=== PATIENT | female | born 1955 | race African-American/Black ===

== ENCOUNTER 2016-12-10 21:50 | Emergency (ER) | END 2016-12-11 01:43 | disposition home or self-care (01) | DX: F41.9 Anxiety disorder, unspecified (principal); F17.210 Nicotine dependence, cigarettes, uncomplicated; I10 Essential (primary) hypertension; E11.9 Type 2 diabetes mellitus without complications; G89.4 Chronic pain syndrome; Z79.84 Long term (current) use of oral hypoglycemic drugs ==

== ENCOUNTER 2016-12-18 10:27 | Emergency (ER) | payer OTHER ==
[~2016-12-18] VITALS: Ht 170.2 cm; Wt 112.5 kg
[~2016-12-18 10:27] MED LIST: ALBU8.5H3 INH; ALPR1TAB2 PO; ATOR20TA38 PO; BEN50 PO; BENA20TA48 PO; BUDE6HFA IH; BUME1TAB18 PO; CARI350T PO; FLUT16SP24 NASAL; HYDR-906 PO; METO100T13 PO; OMEP20CA9 PO; POTA20TA8 PO; RTATR NEB; SITA1TAB7 PO; TOLT4CAP PO; TRAM-40 PO
[2016-12-18 10:33] VITALS: Ht 170.2 cm; Wt 112.5 kg
--- NOTE | 2016-12-18 11:47 | ERD ---
ER Documentation Chief Complaint Date/Time DATE: 12/18/16 TIME: 11:43 Chief Complaint cough,sob history of copd HPI This patient is a 7-year-old female with history of type 2 diabetes, hypertension, high cholesterol, and COPD presenting to the emergency department for exacerbation of chronic COPD. The patient states that intermittently for the past week she has had increased coughing and shortness of breath. She reports productive cough of green phlegm. She is taking Symbicort at home which usually relieves her symptoms but lately has not been working. Additionally she reports feeling lightheaded every time that she coughs. She is not taking any prednisone or other steroids currently. She states the breathing treatments do not work well to relieve her symptoms and in some instances make her condition worse. She denies any nausea, vomiting, diarrhea, fever, chills, or other symptoms at this time. ROS All systems reviewed and are negative except as per history of present illness. Medications Home Meds Active Scripts Prednisone* (Prednisone*) 20 Mg Tab, 40 MG PO DAILY for 5 Days, #10 TAB Prov:ISIS MOREJON PA-C 12/18/16 Azithromycin* (Zithromax*) 250 Mg Tablet, 250 MG PO .ZPACK DIRECTED, #6 TAB TAKE 500 MG (2 TABS) THE FIRST DAY THEN 250 MG (1 TAB) DAYS 2-5 Prov:ISIS MOREJON PA-C 12/18/16 Hydrocodone/Acetaminophen ([place] 5-325 Tablet) 1 Each Tablet, 1 TAB PO Q6H Y for PAIN, #10 TAB Prov:RICCARDO CANTU NP 12/11/16 Alprazolam* (Xanax*) 1 Mg Tab, 1 MG PO Q8H Y for ANXIETY, #10 TAB Prov:RICCARDO CANTU NP 12/11/16 Reported Medications Benazepril Hcl* (Benazepril Hcl*) 20 Mg Tablet, 20 MG PO DAILY, TAB 02/27/15 Fluticasone Propionate* (Flonase* Nasal) 50 Mcg/[place] - 16 Gm [place].susp, 1 SPRAY NASAL DAILY, SPRAY TO EACH NOSTRIL 02/27/15 Bumetanide* (Bumetanide*) 1 Mg Tablet, 1 MG PO DAILY X 5 DAYS, TAB 02/27/15 Tramadol Hcl* (Ultram*) 50 Mg Tablet, 50 MG PO Q4 Y for PAIN, TAB 02/27/15 Tolterodine Tartrate* (Detrol LA*) 4 Mg Cap.sr.24h, 4 MG PO DAILY, CAP 02/27/15 Carisoprodol* (Soma*) 350 Mg Tablet, 350 MG PO TID, TAB 02/27/15 Omeprazole* (Prilosec*) 20 Mg Capsule.dr, 20 MG PO DAILY, CAP 02/27/15 Atorvastatin Calcium* (Atorvastatin Calcium*) 20 Mg Tablet, 20 MG PO HS, TAB 02/27/15 Metoprolol Succinate* (Toprol XL*) 100 Mg Tab.sr.24h, 100 MG PO BID, TAB 02/27/15 Diphenhydramine Hcl* (Benadryl*) 50 Mg Cap, 50 MG PO QHS for ITCHING, CAP 02/27/15 Albuterol Sulfate* (Proair HFA*) 8.5 Gm Hfa.aer.ad, 2 PUFF INH Q4H Y for WHEEZING AND SOB, INH 02/27/15 Budesonide-Formoterol Fumarate* (Symbicort*) 160-4.5 Hfa.aer.ad, 1 PUFF IH BID, INH 02/27/15 Sitagliptin Phos-Metformin Hcl (Janumet) 50-1,000 Mg Tablet, 1 TAB PO BID, TAB 02/27/15 Ipratropium [place]* (Atrovent*) 0.5 Mg/2.5 Ml Neb, 0.5 MG NEB QID Y for WHEEZING AND SOB, EA 02/27/15 Potassium Chloride* (Klor-Con*) 10 Meq Tabsr, 10 MEQ PO DAILY, TAB.SA 02/27/15 Allergies Allergies: Coded Allergies: Penicillins (Verified Allergy, Unknown, 12/18/16) PMhx/Soc History of Surgery: Yes (LEFT LUMPECTOMY 1998) Anesthesia Reaction: No Hx Respiratory Disorders: Yes (Sinusitis, Bronchitis, COPD) Hx Cardiac Disorders: Yes (HTN) Hx Psychiatric Problems: No Hx Miscellaneous Medical Probl: Yes ( Incontinence,HIGH Cholesterol, Pinched Nerves, Diabetes type 2) Hx Alcohol Use: No Hx Substance Use: No Hx Tobacco Use: Yes Smoking Status: Current every day smoker FmHx Noncontributory for chief complaint Physical Exam Vitals Vital Signs Date Time Temp Pulse Resp B/P Pulse Ox O2 Delivery O2 Flow Rate FiO2 12/18/16 10:33 98.0 94 24 142/76 96 Physical Exam INITIAL VITAL SIGNS: Reviewed by me. GENERAL: Alert and interactive. No acute distress. Obese body habitus. HEAD: Head is normocephalic and atraumatic. EYES: EOMI. No scleral icterus. No conjunctival injection. ENT: Moist mucosa. NECK: Supple. Full range of motion. RESPIRATORY: Inspiratory crackles noted to the right lung base. Inspiratory rhonchi noted throughout all lung beasley. Mild wheezing noted to all lung beasley. CV: Regular rate and rhythm. Normal S1 S2. No S3 or S4. No murmurs. ABDOMEN: Soft, non-distended, non-tender. No guarding. No rebound. No masses. EXTREMITIES: No deformity. SKIN: Warm and dry. NEUROLOGIC: Alert and oriented x 4. Speech is normal. Moves all extremities equally. No motor or sensory deficits noted. Results 24 hrs Current Medications Medications (Trade) Dose Ordered Sig/Archie Route PRN Reason Start Time Stop Time Status Last Admin Dose Admin Dexamethasone (Decadron) 10 mg ONCE ONCE IM 12/18/16 12:00 12/18/16 12:01 DC 12/18/16 11:46 Procedures/MDM 7-year-old female with significant past medical history including COPD presents secondary to complaints of exacerbation of COPD symptoms over the past week. The patient is not taking any oral corticosteroids currently. She is only been taking Symbicort at home with mild relief of her symptoms. She states her breathing treatment usually makes her symptoms worse and she declined it at this time although she was offered it. I have ordered a chest x-ray looking for any signs of pneumonia, bronchitis, or other cardiopulmonary abnormalities. I ordered a 10 mg IM injection of Decadron in the department for exacerbation of COPD symptoms. Radiology: chest xray 1 view of radiologist: IMPRESSION: 1. No evidence of acute cardiopulmonary disease. 2. Atherosclerotic vascular disease Primary diagnosis is COPD exacerbation. Secondary diagnosis is cough. I have very low suspicion for any pneumothorax, pulmonary embolism, aortic dissection, acute coronary ischemia, or other emergent conditions. The patient will be discharged home with a prescription for Z-Shun and prednisone. The patient agrees with the discharge plan of diagnosis. She was advised to return to the department immediately for any new or worsening symptoms and she understands this information. The patient was hemodynamically stable prior to discharge. All questions and concerns were addressed. Departure Diagnosis: Primary Impression: COPD exacerbation Additional Impression: Cough Condition: Stable Referrals: [facility] Additional Instructions: Follow-up with your primary care physician within 1 week. Return to the emergency department immediately should you have any new or worsening symptoms, uncontrolled fevers, or other unexplained symptoms. Take all medications as directed. ISIS MOREJON PA-C Dec 18, 2016 11:46
[2016-12-18] MEDS ORDERED: DEXAMETHASONE 10 MG/ML 1 ML INJ IM ONE (12:00)
--- NOTE | 2016-12-18 12:18 | RADRPT ---
PROCEDURE: Chest Radiograph. CLINICAL INDICATION: Cough. COPD. TECHNIQUE: Single frontal chest radiograph. COMPARISON: Chest radiograph 08/31/2016 FINDINGS: Heart size is within normal limits. Atherosclerotic calcifications are present. No infiltrate or effusion is seen. The bones are intact. IMPRESSION: 1. No evidence of acute cardiopulmonary disease. 2. Atherosclerotic vascular disease RPTAT: KK .Juan Marques MD, MD Date Time Electronically viewed and signed by .Juan Marques MD, on 12/18/2016 12:18 .B/
[2016-12-18] MEDS ORDERED: AZIT250T94 PO (12:29)
[2016-12-18] MEDS ORDERED: PRED20TA PO (12:29)
== END 2016-12-18 13:05 | disposition home or self-care (01) ==
LOC: FTE 10:27
DX: J44.1 Chronic obstructive pulmonary disease with (acute) exacerbation (principal); E11.9 Type 2 diabetes mellitus without complications; I10 Essential (primary) hypertension; F17.210 Nicotine dependence, cigarettes, uncomplicated; Z79.84 Long term (current) use of oral hypoglycemic drugs
CPT/HCPCS: 71010; 96372; 99284; J1100